=== PATIENT | female | born 1955 | race Caucasian/White ===

== ENCOUNTER → 2017-01-08 | Outpatient (CLI) | payer OTHER ==
[~2017-01-08] MED LIST: ATIVAN 1MG T1 MG/TAB PO; CATAPRES 0.1MG0.1 MG PO; CATAPRES0.3 MG PO; COREG 6.256.25 MG/TA PO; HCTZ 25MG25 MG PO; LISINOPRIL20 MG PO; NEXIUM40 MG PO; TOPROL XL100 MG PO; VITAMIN D 400400 IU PO; WELLBUTRIN SR150 M1 PO; ZOCOR 40MG40 MG PO; ZOCOR40 MG PO
== END ==
LOC: MC.RAD 10:17
DX: Z12.31 Encounter for screening mammogram for malignant neoplasm of breast (principal)

== ENCOUNTER → 2019-03-10 | Outpatient (CLI) | payer MEDICARE, OTHER | LOC: COL.RAD 13:35 | DX: M19.011 Primary osteoarthritis, right shoulder (principal) | CPT/HCPCS: J3301; Q9967 ==

== ENCOUNTER → 2019-04-15 | Outpatient (CLI) | payer MEDICARE, OTHER | LOC: MC.RAD 10:27 | DX: Z12.31 Encounter for screening mammogram for malignant neoplasm of breast (principal) ==

== ENCOUNTER 2019-07-07 17:53 | Observation (INO) | payer MEDICARE, OTHER ==
[~2019-07-07] VITALS: Ht 157.5 cm; Wt 55.9 kg
[~2019-07-07 17:53] MED LIST changes: +CATAPRES0.2 MG PO; -CATAPRES0.3 MG PO; +COREG 25MG25 MG/TAB PO; -COREG 6.256.25 MG/TA PO
[2019-07-07 18:52] LABS: COLLECTION METHOD CLEAN CATCH
[2019-07-07 18:57] LABS: MUCOUS Present /lpf; PH 5 (5-8); SQUAMOUS EPITHELIAL None Seen /hpf; URINE APPEARANCE Clear; URINE BACTERIA None Seen /hpf; URINE BILIRUBIN Negative (NEGATIVE); URINE BLOOD Negative (NEGATIVE); URINE COLOR Yellow; URINE GLUCOSE Negative (NEGATIVE); URINE KETONE Negative (NEGATIVE); URINE LEUKOCYTE ESTERASE Negative (NEGATIVE); URINE NITRATE Negative (NEGATIVE); URINE PROTEIN(semi-quant) Negative (NEGATIVE); URINE RBC 0-2 /hpf; URINE UROBILINOGEN Negative (NEGATIVE)
[2019-07-07 18:57] LABS: ALANINE AMINOTRANSFERASE 220 U/L (9-52); ALBUMIN 4.4 gm/dL (3.5-5.0); ALKALINE PHOSPHATASE 120 U/L (50-136); ANION GAP 10 mmol/L (7-16); AST,SGOT 285 U/L (15-37); BILIRUBIN,TOTAL 2.4 mg/dL (0.0-1.0); BLOOD UREA NITROGEN 12 mg/dL (7-17); CALCIUM 9.9 mg/dL (8.4-10.2); CARBON DIOXIDE 26 mmol/L (22-30); CHLORIDE 102 mmol/L (98-107); CREATININE, serum 0.93 (0.52-1.25); GLUCOSE 90 mg/dL (74-106); LIPASE 333 U/L (23-300); POTASSIUM 3.9 mmol/L (3.4-5.0); SODIUM 138 mmol/L (137-145); TOTAL PROTEIN 7.9 gm/dL (6.4-8.2)
[2019-07-07 19:00] LABS: C-REACTIVE PROTEIN < 0.5 mg/dL (0.0-0.9)
[2019-07-07 21:05] LABS: HEMOGLOBIN 13.7 g/dl (12.5-16.0); MEAN CELL VOLUME 88 fl (80.0-100.0); MEAN CORPUSCULAR HEMOGLOBIN 29 pg (27.0-31.0); RED BLOOD COUNT 4.77 M/mm3 (4.10-5.30)
[2019-07-07 21:06] LABS: BASO % 0.4 % (0.0-2.0); EOS # 0.2 (0.0-0.7); EOS % 1.8 % (0-4.0); GRAN % 73.6 % (42.2-75.2); LYMPH # 1.5 (1.2-3.4); LYMPH % 16.1 % (20.0-51.0); MEAN CORPUSCULAR HGB CONC 33 g/dl (33.0-37.0); MEAN PLATELET VOLUME 10.7 fl (7.4-10.4); MONO # 0.8 (0.1-0.6); MONO % 7.9 % (1.7-9.3); PLATELET COUNT 270 K/mm3 (130-400); REDCELL DISTRIBUTION WIDTH-CV 13.5 % (11.5-14.5)
[2019-07-07 22:52] VITALS: BP 174/80; PULSE 56; TEMP 97.8
[2019-07-07] MEDS ORDERED: WELLBUTRIN 100100 MG PO (22:53)
[2019-07-07] MEDS ORDERED: DESYREL 100MG100 MG PO (22:54)
[2019-07-07] MEDS ORDERED: SINGULAIR 110 MG/TAB PO (22:55)
[2019-07-07] MEDS ORDERED: NEXIUM 40MG40 MG PO (22:56)
[2019-07-07] MEDS ORDERED: B-121000 MCG PO (22:58)
[2019-07-07] MEDS ORDERED: STIOLTO RESPIMAT4 GM IH (23:01)
[2019-07-08] VITALS (12 sets, daily range): BP systolic 106–149; BP diastolic 58–83; PULSE 58–76; TEMP 97.5–98.4
[2019-07-08 06:27] LABS: ALBUMIN 3.3 gm/dL (3.5-5.0); BILIRUBIN,TOTAL 0.5 mg/dL (0.0-1.0); CALCIUM 8.6 mg/dL (8.4-10.2); CREATININE, serum 0.83 (0.52-1.25); POTASSIUM 3.7 mmol/L (3.4-5.0); TOTAL PROTEIN 5.9 gm/dL (6.4-8.2)
--- NOTE | 2019-07-08 07:55 | NUR ---
PATIENT ASSESSMENT COMPLETED. PATIENT IS ALERT AND ORIENTED WITH VSS. PATIENT IS HERE WITH DX OF RUQ PAIN AND CHOLECYSTITIS. PATIENT HEART AND LUNG SOUNDS NORMAL. PATIENT DOES HAVE C/O CHRONIC SHOULDER PAIN, STATES SHE IS TO HAVE SURGERY IN THE FUTURE. DID GET A DOSE OF MORPHINE FROM STRATEGIC PARTNER DEVELOPMENT MANAGER THIS AM. PATIENT HAS HISTORY OF DIARRHEA, HYPERTENSION, BILATERAL SHOULDER PAIN, AND PATIENT IS SMOKER. PATIENT TO HAVE SURGERY THIS AFTERNOON. PATIENT CALL LIGHT WITHIN REACH, WILL CONTINUE TO MONITOR
[2019-07-08 08:06] LABS: HEMOGLOBIN 11.3 g/dl (12.5-16.0); MEAN CELL VOLUME 89 fl (80.0-100.0); MEAN CORPUSCULAR HEMOGLOBIN 29 pg (27.0-31.0); RED BLOOD COUNT 3.92 M/mm3 (4.10-5.30)
[2019-07-08 08:07] LABS: BASO % 0.7 % (0.0-2.0); EOS # 0.2 (0.0-0.7); EOS % 3.2 % (0-4.0); GRAN # 3.1 (1.4-6.5); GRAN % 54.5 % (42.2-75.2); LYMPH # 1.7 (1.2-3.4); LYMPH % 29.5 % (20.0-51.0); MEAN CORPUSCULAR HGB CONC 32 g/dl (33.0-37.0); MEAN PLATELET VOLUME 10.3 fl (7.4-10.4); MONO # 0.7 (0.1-0.6); MONO % 11.6 % (1.7-9.3); PLATELET COUNT 212 K/mm3 (130-400); REDCELL DISTRIBUTION WIDTH-CV 13.3 % (11.5-14.5)
--- NOTE | 2019-07-08 11:32 | NUR ---
CODY met with patient and to discuss discharge planning. Patient lives independently at home with her . Patient's PCP is Dr Gonzalez and she obtains medications from [facility] or from the [place] via mail. Patient denies difficulty obtaining medications. Patient reports independence with all ADLs and does not use any DME or home health services. Patient reports she is in process with writing up a DPOA. Patient plans to return home when discharged. CODY does not anticipate any discharge needs.
--- NOTE | 2019-07-08 19:20 | NUR ---
RECEIVED PER BED FROM PACU, POST LAP JAZMINE. IS ALERT, COMPLAINING OF RIGHT SHOULDER PAIN. HAS 2 LAP SITES THAT ARE GLUED AND DRY AT THIS TIME. SPOUSE AT BEDSIDE.
--- NOTE | 2019-07-08 20:26 | NUR ---
PATIENT REFUSES VS TO BE DONE BY THE [facility]. INSISTING TAKING ALL HER B/P MANUALLY. REFUSES LEFT ARM B/P'S. REFUSES ANY ORAL MEDS INCLUDING PAIN OR SLEEP MEDS. REPORTS PAIN TO BOTH SHOULDER, WHICH IS CHRONIC.
--- NOTE | 2019-07-08 21:30 | NUR ---
PATIENT APOLOGIZED FOR BEHAVIOR ON ARRIVAL TO FLOOR. TAKES GRAPE JUICE AND APPLESAUCE AT THIS TIME. PLACED DEPENDS ON PATIENT PER HER REQUEST.
--- NOTE | 2019-07-08 23:00 | NUR ---
PATIENT ATE TURKEY SANDWICH/COOKIE AND APPLESAUCE. HAD EPISODE OF DIARRHEA AFTER EATING, WHICH SHE REPORTS IS NORMAL FOR HER. ASSISTED WITH CHANGING OF DEPENDS.
--- NOTE | 2019-07-08 23:30 | NUR ---
TAKES COREG 12.5MG AND CATAPRES 0.2MG NOW, PER HER REQUEST. AMBULATES AROUND SURGICAL UNIT WITH ONE STAFF, DOES WELL. REPORTS PAIN IS TOLERABLE, DOES NOT NEED ANY PAIN MEDS AT THIS TIME.
--- NOTE | 2019-07-09 02:10 | NUR ---
GOOD ORAL INTAKE, IV FLUIDS CAPPED AT THIS TIME.
--- NOTE | 2019-07-09 03:18 | NUR ---
REPORTS PAIN TO ABDOMEN, 03/06. MEDICATED WITH DILAUDID 2MG PO NOW. TAKES RED JELLO AT THIS TIME.
--- NOTE | 2019-07-09 07:51 | NUR ---
PATIENT ASSESSMENT COMPELTED. PATIENT IS ALERT AND ORIENTED AND VSS. HEART AND LUNG SOUNDS NORMAL. PATIENT HAD LAP JAZMINE COMPLETED WITH 2 LAP SITES. SITES ARE CLEAN DRY AND INTACT WITH GLUE DRESSING. PATIENT HAS IV IN RIGHT FOREARM. PATIENT DID C/O PAIN IN HER RIGHT SHOULDER. PATIENT WAS GIVEN ORAL DILAUDID. PATIENT IN ROOM EATING BREAKFAST. PATIENT STATES SHE FEELS GOOD. CALL LIGHT WITHIN REACH, WILL CONTINUE TO MONITOR
[2019-07-09 08:25] VITALS: BP 126/76; PULSE 82; TEMP 99.1
[2019-07-09] MEDS ORDERED: DILAUDID 2MG TAB2 MG PO (09:32)
--- NOTE | 2019-07-09 10:18 | NUR ---
First visit from the group teacher. No needs right now.
--- NOTE | 2019-07-09 10:32 | NUR ---
PATIENT IV TAKEN OUT BY OPENSTACK DEVELOPER. PATIENT DOING WELL. DISCHARGE INSTRUCTIONS GIVEN TO PATIENT. ALL QUESTIONS ASKED AND ANSWERED. PATIENTS WITH HER. PATIENT TAKEN OUT IN WHEELCHAIR BY NURSING STAFF.
== END 2019-07-09 10:30 | disposition home or self-care (01) ==
LOC: COL.ER 17:53 → SURG 20:44
PROVIDERS: Emergency Medicine; ADMIT Surgery
DX: K80.10 Calculus of gallbladder with chronic cholecystitis without obstruction (principal); Z90.710 Acquired absence of both cervix and uterus; F17.210 Nicotine dependence, cigarettes, uncomplicated; I10 Essential (primary) hypertension; J44.9 Chronic obstructive pulmonary disease, unspecified; K21.9 Gastro-esophageal reflux disease without esophagitis; M19.90 Unspecified osteoarthritis, unspecified site; Z88.2 Allergy status to sulfonamides; Z88.6 Allergy status to analgesic agent; Z88.8 Allergy status to other drugs, medicaments and biological substances; Z88.1 Allergy status to other antibiotic agents; Z79.51 Long term (current) use of inhaled steroids; Z86.73 Personal history of transient ischemic attack (TIA), and cerebral infarction without residual deficits
CPT/HCPCS: A4216; G0378; J0696; J1100; J2270; J2405; J2704; J3010; J7030; Q9967

== ENCOUNTER → 2019-10-01 | Outpatient (CLI) | payer MEDICARE, OTHER ==
[~2019-10-01] MED LIST changes: +B-121000 MCG PO; +COLESTID 1GM1 G PO; +DESYREL 100MG100 MG PO; +DESYREL 50MG50 MG PO; +DILAUDID 2MG TAB2 MG PO; +LOMOTIL 0.025 M1 TAB PO; +NEXIUM 40MG40 MG PO; +SINGULAIR 110 MG/TAB PO; +STIOLTO RESPIMAT4 GM IH; +WELLBUTRIN 100100 MG PO; +ZANAFLEX CAPSULE4 MG PO
== END ==
LOC: COL.RAD 13:57
DX: D36.9 Benign neoplasm, unspecified site (principal); R13.10 Dysphagia, unspecified; Z98.890 Other specified postprocedural states

== ENCOUNTER → 2020-05-30 | Outpatient (CLI) | payer MEDICARE, OTHER | LOC: COL.RAD 05-24 14:00 | DX: M51.36 Other intervertebral disc degeneration, lumbar region (principal); M47.816 Spondylosis without myelopathy or radiculopathy, lumbar region; M71.38 Other bursal cyst, other site ==

== ENCOUNTER 2021-01-26 06:42 | Inpatient (IN) | payer MEDICARE, OTHER ==
[~2021-01-26] VITALS: Ht 160 cm; Wt 54.5 kg
[~2021-01-26 06:42] MED LIST changes: -DESYREL 50MG50 MG PO; +DESYREL DIVIDO150 M1 PO; -WELLBUTRIN 100100 MG PO; +WELLBUTRIN SR200 MG PO
[2021-01-26 07:44] LABS: BASO # 0.1 (0.0-0.2); BASO % 0.3 % (0.0-2.0); EOS # 0.1 (0.0-0.7); EOS % 0.7 % (0-4.0); GRAN # 14.4 (1.4-6.5); GRAN % 82.9 % (42.2-75.2); HEMATOCRIT 40.3 % (37.0-47.0); HEMOGLOBIN 13.3 g/dl (12.5-16.0); LYMPH # 1.2 (1.2-3.4); LYMPH % 7.1 % (20.0-51.0); MEAN CELL VOLUME 88 fl (80.0-100.0); MEAN CORPUSCULAR HEMOGLOBIN 29 pg (27.0-31.0); MEAN CORPUSCULAR HGB CONC 33 g/dl (33.0-37.0); MEAN PLATELET VOLUME 10.1 fl (7.4-10.4); MONO # 1.5 (0.1-0.6); MONO % 8.5 % (1.7-9.3); PLATELET COUNT 280 K/mm3 (130-400); RED BLOOD COUNT 4.57 M/mm3 (4.10-5.30); REDCELL DISTRIBUTION WIDTH-CV 13.8 % (11.5-14.5)
[2021-01-26 07:53] LABS: ALBUMIN 4.5 gm/dL (3.5-5.0); BILIRUBIN,TOTAL 0.5 mg/dL (0.0-1.0); C-REACTIVE PROTEIN 0.6 mg/dL (0.0-0.9); CALCIUM 9.6 mg/dL (8.4-10.2); CREATININE, serum 1.04 (0.52-1.25); POTASSIUM 4.4 mmol/L (3.4-5.0); TOTAL PROTEIN 8.4 gm/dL (6.4-8.2)
[2021-01-26] MEDS ORDERED: WELLBUTRIN 75MG75 MG PO (09:30)
[2021-01-26] MEDS ORDERED: CYANOCOBAL1000 MCG/M (09:31)
--- NOTE | 2021-01-26 11:00 | NUR ---
Patient arrived from ED via bed; was able to ambulate and transfer with no assistance. Left hand is mildly swollen, patient reports that pain comes and goes. IVF per order. Discussed NPO order with patient. Verbalized understanding. Oriented to room. Denies further needs, call light within reach.
[2021-01-26 11:46] VITALS: BP 110/60; PULSE 79; TEMP 100
[2021-01-26 16:30] VITALS: BP 112/65; PULSE 69; TEMP 98.9
--- NOTE | 2021-01-26 18:10 | NUR ---
Patient resting in bed at this time. Patient remains alert and oriented. Patient reports that she does not want to take medication from the hosptial, she wants to take her own home medications that she has with her in a pill sorter. States she does not have the pill bottles with her. Spoke with pharmacy and hospitalist. Patient agreed to take medication as ordered if it is exactly her home brand and dose. Asked patient to have her bring bottle of Nexium, as it is the only medication our pharmacy cannot supply. Patient verbalized understanding and denied further needs, call light within reach.
--- NOTE | 2021-01-26 19:07 | NUR ---
Patient in bull with IV racheal, stating she is "checking out". Says she needs her to stay the night but he can't because of Covid. States "covid is a crock of crap, it always has been". Reviewed visitor policy with patient. Reviewed plan of care with patient. Patient continues to wish to leave. Reviewed AMA policy with patient. Attempted x1 to notify BERNARDO Guadarrama of patients wish to leave, unanswered. AMA paperwork taken to patient room. Patient yelling "No one here knows what they are doing, I'm not going to get better here." "I have an appt with my ortho doctor in [place] tomorrow, they're the only ones who know what they are doing". Patient signed AMA paperwork, upon signing, threw clipboard on floor, stating "know one at this hospital knows what they are doing. Process Safety Management Engineer notified of above. Patient left AMA at 1915.
[2021-01-27] MEDS ORDERED: AMOXICILLIN 8751 TAB PO (08:21)
== END 2021-01-26 19:10 | disposition left against medical advice (07) | DRG 603 ==
LOC: COL.ER 06:42 → SURG 08:51
PROVIDERS: Emergency Medicine; ADMIT Internal Medicine
DX: L03.012 Cellulitis of left finger (principal); S61.251A Open bite of left index finger without damage to nail, initial encounter; J44.9 Chronic obstructive pulmonary disease, unspecified; I10 Essential (primary) hypertension; R11.0 Nausea; F32.9 Major depressive disorder, single episode, unspecified; Z86.73 Personal history of transient ischemic attack (TIA), and cerebral infarction without residual deficits; Z90.710 Acquired absence of both cervix and uterus; Z90.49 Acquired absence of other specified parts of digestive tract; Z87.891 Personal history of nicotine dependence; Z88.6 Allergy status to analgesic agent; Z88.1 Allergy status to other antibiotic agents; Z88.2 Allergy status to sulfonamides; Z88.8 Allergy status to other drugs, medicaments and biological substances
CPT/HCPCS: 99222-AI; J0295; J1650; J2270; J2405; J7030

== ENCOUNTER 2021-05-11 16:10 | Emergency (ER) | payer OTHER, MEDICARE ==
[~2021-05-11] VITALS: Ht 157.5 cm; Wt 54.8 kg
[~2021-05-11 16:10] MED LIST changes: +AMOXICILLIN 8751 TAB PO; +CYANOCOBAL1000 MCG/M; +WELLBUTRIN 75MG75 MG PO
[2021-05-11 16:19] VITALS: BP 144/96; TEMP 98.2
[2021-05-11] MEDS ORDERED: PRILOSEC 20MG20 MG PO (17:03)
[2021-05-11] MEDS ORDERED: ASPIRIN 81M81 MG/TA2 PO (17:04)
[2021-05-11] MEDS ORDERED: FLEXERIL 1010 MG/TAB PO (17:18)
[2021-05-11 17:44] VITALS: PULSE 66
== END 2021-05-11 17:46 | disposition home or self-care (01) ==
LOC: COL.ER 16:10
DX: S06.0X0A Concussion without loss of consciousness, initial encounter (principal); J44.9 Chronic obstructive pulmonary disease, unspecified; I10 Essential (primary) hypertension; Z79.01 Long term (current) use of anticoagulants; Z86.73 Personal history of transient ischemic attack (TIA), and cerebral infarction without residual deficits; Z87.891 Personal history of nicotine dependence; Z79.899 Other long term (current) drug therapy; V47.5XXA Car driver injured in collision with fixed or stationary object in traffic accident, initial encounter

== ENCOUNTER 2021-11-29 15:46 | Emergency (ER) | payer MEDICARE, OTHER ==
[~2021-11-29] VITALS: Ht 157.5 cm; Wt 54.5 kg
[~2021-11-29 15:46] MED LIST changes: +ASPIRIN 81M81 MG/TA2 PO; +FLEXERIL 1010 MG/TAB PO; +PRILOSEC 20MG20 MG PO
[2021-11-29 16:00] VITALS: TEMP 97.9
[2021-11-29 16:21] LABS: HEMOGLOBIN 11.4 g/dl (12.5-16.0); MEAN CELL VOLUME 75 fl (80.0-100.0); MEAN CORPUSCULAR HEMOGLOBIN 24 pg (27-31); MEAN CORPUSCULAR HGB CONC 32 g/dl (33.0-37.0); MEAN PLATELET VOLUME 9.4 fl (7.4-10.4); PLATELET COUNT 230 K/mm3 (130-400); RED BLOOD COUNT 4.71 M/mm3 (4.10-5.30); REDCELL DISTRIBUTION WIDTH-CV 16.3 % (11.5-14.5)
[2021-11-29 16:23] LABS: HEMATOCRIT 35.3 % (37.0-47.0)
[2021-11-29 16:36] LABS: BAND 26 % (0-10); NEUTROPHILS 47 % (42.0-75.2)
[2021-11-29 16:37] LABS: LYMPHOCYTE 12 % (20.0-51.0)
[2021-11-29 16:38] LABS: PLATELET ESTIMATE NORMAL (NORMAL)
[2021-11-29 16:48] LABS: ALBUMIN 3.8 gm/dL (3.4-4.8); BILIRUBIN,TOTAL 0.5 mg/dL (0.2-1.2); CALCIUM 8.8 mg/dL (8.4-10.2); CREATININE, serum 1.57 mg/dL (0.57-1.11); POTASSIUM 4.2 mmol/L (3.5-4.5); TOTAL PROTEIN 8.4 gm/dL (6.2-8.1)
[2021-11-29] MEDS ORDERED: ZITHROMAX Z PA250 MG PO (17:32)
[2021-11-29 17:36] VITALS: BP 131/75; PULSE 79
== END 2021-11-29 17:47 | disposition home or self-care (01) ==
LOC: COL.ER 15:46
PROVIDERS: Family Medicine
DX: U07.1 COVID-19 (principal); J44.9 Chronic obstructive pulmonary disease, unspecified; I10 Essential (primary) hypertension; I25.10 Atherosclerotic heart disease of native coronary artery without angina pectoris; Z87.891 Personal history of nicotine dependence; Z73.0 Burn-out; Z88.1 Allergy status to other antibiotic agents; Z88.2 Allergy status to sulfonamides; Z79.82 Long term (current) use of aspirin; Z79.899 Other long term (current) drug therapy
CPT/HCPCS: J1100; J7120

== ENCOUNTER → 2022-11-20 | Outpatient (CLI) | payer MEDICARE, OTHER ==
[~2022-11-20] MED LIST changes: +ZITHROMAX Z PA250 MG PO
== END ==
LOC: COL.RAD 09:11
DX: Z87.891 Personal history of nicotine dependence (principal)

== ENCOUNTER → 2022-12-27 | Outpatient (CLI) | payer OTHER | LOC: MC.RAD 13:15 | DX: Z12.31 Encounter for screening mammogram for malignant neoplasm of breast (principal) ==

== ENCOUNTER → 2024-06-24 | Outpatient (CLI) | payer OTHER | LOC: COL.RAD 12:43 | DX: Z12.2 Encounter for screening for malignant neoplasm of respiratory organs (principal); Z87.891 Personal history of nicotine dependence ==